=== PATIENT | female | born 1955 | race Hispanic/Latino ===

== ENCOUNTER 2016-09-05 23:49 | Emergency (ER) | payer BC ==
[2016-09-06 00:39] VITALS: BP 112/68; PULSE 86; RESP 16; TEMP 98; O2SAT 100
[2016-09-06] MEDS ORDERED: TDAP Vaccine 0.5 mL Syr IM ONE (00:46)
--- NOTE | 2016-09-06 10:14 | CT ---
PROCEDURE: CT HEAD WITHOUT CONTRAST. HISTORY: Head injury COMPARISON: None available. TECHNIQUE: Axial computed tomography images were obtained through the head/brain without intravenous contrast. Radiation dose: Total exam DLP = 840.43 mGy-cm. This CT exam was performed using one or more of the following dose reduction techniques: Automated exposure control, adjustment of the mA and/or kV according to patient size, and/or use of iterative reconstruction technique. FINDINGS: HEMORRHAGE: No intracranial hemorrhage. BRAIN: Sheth-white matter differentiation is preserved. There is no mass, mass effect or abnormal extra-axial fluid collection. VENTRICLES: The ventricles are normal in size, shape and configuration. CALVARIUM: There is no calvarial fracture or extracranial soft tissue swelling. PARANASAL SINUSES: There is mild mucosal thickening in the left maxillary sinus and scattered mucoperiosteal thickening in the left anterior ethmoid air cells and inferior frontal sinus. The remaining included paranasal sinuses are clear. MASTOID AIR CELLS: Predominantly clear. OTHER FINDINGS: None. IMPRESSION: No acute intracranial abnormality. A preliminary report was provided by [employer]. A preliminary report was provided by [employer].
--- NOTE | 2016-09-06 10:14 | CT ---
PROCEDURE: CT ORBITS WITHOUT CONTRAST. HISTORY: Facial injury COMPARISON: None available. TECHNIQUE: Axial CT images of the orbits were obtained. Coronal and sagittal reformats were generated. Radiation dose: Total exam DLP = 675.56 mGy-cm. This CT exam was performed using one or more of the following dose reduction techniques: Automated exposure control, adjustment of the mA and/or kV according to patient size, and/or use of iterative reconstruction technique. FINDINGS: There is an acute displaced fracture in the right nasal bone with overlying soft tissue swelling. There is also a nondisplaced fracture in the left nasal bone. No acute maxillofacial fracture. There is soft tissue swelling overlying the mandible without evidence of fracture. RIGHT ORBIT: RIGHT BONY ORBIT: Normal. RIGHT INTRAORBITAL STRUCTURES: Globe: Normal. Extraocular muscles: Normal. Post septal space: Normal. Optic Nerve: Normal. Lacrimal Apparatus: Normal. RIGHT PRESEPTAL SOFT TISSUES: Normal. LEFT ORBIT: LEFT BONY ORBIT: Normal. LEFT INTRAORBITAL STRUCTURES: Globe: Normal. Extraocular muscles: Normal. Post septal space: Normal Optic Nerve: Normal. . Lacrimal Apparatus: Normal. LEFT PRESEPTAL SOFT TISSUES: Normal. OTHER: There is mild polypoid mucosal thickening in the left maxillary sinus and scattered mucoperiosteal thickening in the left inferior frontal sinus and ethmoid air cells. The nasal septum is deviated to the left with a mid septal bony spur which indents the left inferior turbinate. IMPRESSION: Bilateral nasal bone fractures, displaced on the right with overlying soft tissue swelling. No acute maxillofacial fracture. A preliminary report was provided by [employer] [facility].
--- NOTE | 2016-09-15 17:02 | ED PDOC ---
HPI: Head Injury Chief Complaint (Nursing): Trauma Chief Complaint (Provider): facial injury History Per: Patient (60 y/o female here for evaluation of facial injury occurred today when she tripped outdoors. Denies any LOC. Fall was witnessed by daughter. Patient admits to drinking etoh today. Notes pain and swelling by nose. Denies any difficulty with opening and closing jaw. Denies any visual issues. Is not on any anticoagulants/plavix.) Past Medical History Reviewed: Historical Data, Nursing Documentation, Vital Signs Vital Signs: Last Vital Signs Temp 98 F 09/06/16 00:37 Pulse 86 09/06/16 00:37 Resp 16 09/06/16 00:37 BP 112/68 09/06/16 00:37 Pulse Ox 100 09/06/16 00:37 - Family History Family History: States: No Known Family Hx - Home Medications Home Medications: Ambulatory Orders Medication Instructions Recorded Cephalexin [Keflex] 500 mg PO TID #15 cap 09/06/16 - Allergies Allergies/Adverse Reactions: Allergies Allergy/AdvReac Type Severity Reaction Status Date / Time No Known Allergies Allergy Verified 09/06/16 00:37 Review of Systems ROS Statement: Except As Marked, All Systems Reviewed And Found Negative ENT: Positive for: Other (nasal injury) Physical Exam - Reviewed Nursing Documentation Reviewed: Yes Vital Signs Reviewed: Yes - Physical Exam Appears: Positive for: Well, Non-toxic, No Acute Distress Head Exam: Positive for: ATRAUMATIC, NORMAL INSPECTION, NORMOCEPHALIC Skin: Positive for: Warm. Negative for: Normal Color (1cm region of deep abrasion and small laceration on nasal bridge. swelling noted. (-) septal hematoma) Eye Exam: Positive for: EOMI, Normal appearance, PERRL ENT: Positive for: Normal ENT Inspection Neck: Positive for: Normal, Painless ROM Cardiovascular/Chest: Positive for: Regular Rate, Rhythm Respiratory: Positive for: CNT, Normal Breath Sounds Gastrointestinal/Abdominal: Positive for: Normal Exam, Bowel Sounds, Soft Back: Positive for: Normal Inspection Extremity: Positive for: Normal ROM Neurologic/Psych: Positive for: Alert, Oriented - ECG O2 Sat by Pulse Oximetry: 100 - Progress ED Course And Treament: Head CT: nad Facial CT: (+) nasal fx noted Tdap 0.5 ml IM x dose Disposition - Clinical Impression Clinical Impression: Nasal fracture - Patient ED Disposition Is Patient to be Admitted: No - Disposition Referrals: Gallito Martinez MD [Staff Provider] - Disposition: Routine/Home Disposition Time: 02:49 Condition: FAIR Additional Instructions: RETURN TO ED OR PMD IN 5 DAYS FOR REMOVAL OF SUTURE. Prescriptions: Cephalexin [Keflex] 500 mg PO TID #15 cap Instructions: Nasal Fracture (ED), Laceration (ED) Procedure: Wound Repair - Time Performed Time Performed: 01:40 - Time Out Time Out: Site verified - Consent Obtained Consent obtained: Verbal - Performed by Performed by: Mid-level Provider - Indications Indication(s):: Laceration - Location Location:: Nose Shape:: Linear Dimensions Length cm: 1cm laceration Depth:: Epidermis - Anesthetic Technique Anesthetic Technique: Topical Local/Regional Anesthetic:: Lidocaine 1% w/epi - Irrigated Irrigated with ml of normal saline: 150ml - Complexity Complexity:: Simple (one layer) - Wound repair method Sutures:: # (2 sutures 6-0 prolene), Technique (interrupted.) - Patient tolerated procedure Patient Tolerated Procedure:: Well
== END 2016-09-06 02:49 | disposition home or self-care (01) ==
LOC: H.ER 23:49
DX: S02.2XXA Fracture of nasal bones, initial encounter for closed fracture (principal); S01.21XA Laceration without foreign body of nose, initial encounter; W19.XXXA Unspecified fall, initial encounter; Y93.9 Activity, unspecified